=== PATIENT | male | born 1980 | race Caucasian/White ===

== ENCOUNTER 2020-11-20 15:34 | Outpatient (REF) | payer OTHER, SELFPAY ==
--- NOTE | ~2020-11-20 | US_ITS ---
EXAMINATION: US SCROTUM CLINICAL INFORMATION: Left-sided pain. COMPARISON: Previous scrotal ultrasound July 2018 TECHNIQUE: A sonogram of the scrotum was performed assessing suero-scale appearance and color Doppler flow. Spectral Doppler analysis of the arterial and venous flow were performed in the testes bilaterally. FINDINGS: RIGHT: Right testicle measures 4.4 x 2.4 x 2.9 cm, volume 16 mL. No focal testicular parenchymal lesions are visualized. Spectral Doppler analysis of the arterial and venous flow is normal in the right testis. Right epididymal head is normal in size. No right hydrocele or varicocele is seen. Right epididymal Doppler flow is normal. LEFT: Left testicle measures 4.1 x 2.2 x 2.5 cm, volume 12 mL. There is a solitary 2 mm echogenic density in the superior left testicle suggestive of a calcification. No other focal testicular parenchymal lesions are visualized. Spectral Doppler analysis of the arterial and venous flow is normal in the left testis. Left epididymal head is normal in size. There is a small left hydrocele. This appears slightly complex with septations. No left varicocele is seen. Left epididymal Doppler flow is normal. US/US scrotum IMPRESSION: Small slightly complex left hydrocele new from 2019 exam. Small solitary calcification in the left testicle..
== END 2020-11-20 15:35 | disposition home or self-care (01) ==
LOC: HO.HMGCX 15:34
PROVIDERS: PCP Nurse Practitioner Family; Visit Provider Nurse Practitioner Family
DX: N50.812 Left testicular pain (principal); R10.32 Left lower quadrant pain
CPT/HCPCS: 76870

== ENCOUNTER → 2020-12-17 15:09 | Outpatient (BNVA) | payer OTHER, SELFPAY | PROVIDERS: PCP Nurse Practitioner Family; Visit Provider Urology | DX: Z13.89 Encounter for screening for other disorder (principal) | CPT/HCPCS: 99202 ==

== ENCOUNTER 2021-02-05 09:05 | Outpatient (REF) | payer OTHER, SELFPAY ==
[2021-02-05 12:19] LABS: Alanine Aminotransferase 43 U/L (0-40); Albumin Level 4.4 g/dL (3.5-5.0); Alkaline Phosphatase 67 U/L (39-117); Anion Gap 16 (12-20); Aspartate Amino Transferase 28 U/L (5-37); Bilirubin Total 0.8 mg/dL (0.0-1.0); Blood Urea Nitrogen 16 mg/dL (9-16); Calcium 9.8 mg/dL (8.4-10.2); Carbon Dioxide 24 mmol/L (22-29); Chloride 103 mmol/L (96-108); Cholesterol 200 mg/dL; Estimated Glomerular Filt Rate > 60; Glucose Fasting 100 mg/dL (60-99); HDL Cholesterol 51 mg/dL; LDL Cholesterol Calculated 124 mg/dl; Potassium 4.6 mmol/L (3.3-5.1); Sodium 138 mmol/L (135-145); Total Protein 7.7 g/dL (6.5-8.0); Triglycerides 128 mg/dL
[2021-02-05 12:41] LABS: TSH reflex Free T4 1.98 uIU/mL (0.32-4.0)
== END 2021-02-05 09:06 | disposition home or self-care (01) ==
LOC: HO.HMGCLDS 09:05
PROVIDERS: PCP Nurse Practitioner Family; Visit Provider Nurse Practitioner Family
DX: E66.9 Obesity, unspecified (principal)
CPT/HCPCS: 36415; 80053; 80061; 84443

== ENCOUNTER 2021-03-14 15:01 | Outpatient (REF) | payer OTHER, SELFPAY ==
--- NOTE | ~2021-03-14 | XR_ITS ---
EXAMINATION: XR ABDOMEN COMPLETE CLINICAL INDICATION: Abdominal pain COMPARISON: None TECHNIQUE: 2 views of the abdomen. FINDINGS: The bowel gas pattern is normal with no evidence of ileus or obstruction. No unusual soft tissue calcifications are noted. The bones are unremarkable. XR/XR abdomen min 2V IMPRESSION: Unremarkable examination.
== END 2021-03-14 15:02 | disposition home or self-care (01) ==
LOC: HO.HMGCX 15:01
PROVIDERS: PCP Nurse Practitioner Family; Visit Provider Hospitalist
DX: R10.9 Unspecified abdominal pain (principal)
CPT/HCPCS: 74019

== ENCOUNTER 2021-03-21 08:48 | Outpatient (REF) | payer OTHER, SELFPAY ==
[2021-03-21 12:29] LABS: Alanine Aminotransferase 41 U/L (0-40); Albumin Level 4.3 g/dL (3.5-5.0); Alkaline Phosphatase 69 U/L (39-117); Anion Gap 12 (12-20); Aspartate Amino Transferase 24 U/L (5-37); Bilirubin Total 0.6 mg/dL (0.0-1.0); Blood Urea Nitrogen 16 mg/dL (9-16); Calcium 9.8 mg/dL (8.4-10.2); Carbon Dioxide 28 mmol/L (22-29); Chloride 104 mmol/L (96-108); Cholesterol 177 mg/dL; Estimated Glomerular Filt Rate > 60; Glucose Fasting 96 mg/dL (60-99); HDL Cholesterol 43 mg/dL; LDL Cholesterol Calculated 124 mg/dl; Potassium 5.1 mmol/L (3.3-5.1); Sodium 139 mmol/L (135-145); Total Protein 7.4 g/dL (6.5-8.0); Triglycerides 53 mg/dL
[2021-03-21 12:51] LABS: TSH reflex Free T4 2.73 uIU/mL (0.32-4.0)
[2021-03-27 21:32] LABS: Testosterone, Free 50.9 pg/mL (35.0-155.0); Testosterone, Total 318 ng/dL (250-1100)
== END 2021-03-21 08:49 | disposition home or self-care (01) ==
LOC: HO.HMGCLDS 08:48
PROVIDERS: PCP Nurse Practitioner Family; Visit Provider Nurse Practitioner Family
DX: R53.83 Other fatigue (principal)
CPT/HCPCS: 36415; 80053; 80061; 84402; 84403; 84443

== ENCOUNTER → 2021-05-06 10:06 | Outpatient (BNVA) | payer OTHER, SELFPAY | PROVIDERS: PCP Nurse Practitioner Family; Referring Provider Nurse Practitioner Family; Visit Provider Psychiatry & Neurology Neurology | DX: G47.69 Other sleep related movement disorders (principal); R53.83 Other fatigue; R06.83 Snoring; R06.81 Apnea, not elsewhere classified | CPT/HCPCS: 99212 ==

== ENCOUNTER 2021-06-12 09:24 | Outpatient (REF) | payer OTHER, SELFPAY ==
--- NOTE | ~2021-06-12 | CT_ITS ---
EXAMINATION: CT ABDOMEN AND PELVIS WITH CONTRAST CLINICAL INFORMATION: Deep inguinal pain, left side. COMPARISON: CT abdomen and pelvis with IV contrast 11/24/2018. TECHNIQUE: Multidetector volumetric images were obtained from the superior aspect of the liver through the pubic symphysis following administration 85 mL of Omnipaque 350 intravenous contrast. Sagittal and coronal reformatted images were obtained on the technologist's workstation. Oral contrast: No This CT examination was performed using dose optimization techniques as appropriate, variously including the following: *Automated exposure control *Adjustment of mA and/or kV according to patient size (this includes techniques or standardized protocols for targeted exams where dose is matched to indication/reason for exam; i.e. extremities or head) *Use of iterative reconstruction technique DLP: 588 mGy-cm FINDINGS: LUNG BASES: The visualized lung bases are unremarkable. LIVER, GALLBLADDER, AND BILIARY TREE: The liver is normal in size, shape, and attenuation. No focal hepatic lesion or biliary ductal dilatation is present. The gallbladder is unremarkable with no evidence of radiopaque gallstones, gallbladder wall thickening, or obvious pericholecystic inflammatory changes. PANCREAS: Unremarkable. SPLEEN: Unremarkable. ADRENAL GLANDS: Unremarkable. KIDNEYS AND URETERS: The kidneys are normal in size, shape, and attenuation. No hydronephrosis, hydroureter, or calculi seen. No perinephric stranding. BLADDER: Unremarkable. GASTROINTESTINAL TRACT: There is stool, oral contrast opacifying a normal caliber colon. The small bowel loops are normal caliber as well. Appendix is not visualized. The stomach is nondistended with a small hiatal hernia. ABDOMINAL WALL: No significant hernia is appreciated. LYMPH NODES: There are bilateral prominent iliac lymph nodes. The largest right iliac lymph node measures 1.9 x 1.2 cm. Previously it measured 1.4 x 1.9 cm, similar. The left inguinal lymph node is also enlarged but similar size. Small shotty retroperitoneal lymph nodes are seen less than 1 cm. VASCULAR: Unremarkable. PELVIC VISCERA: Unremarkable. OSSEOUS STRUCTURES: There is loss of height with endplate Schmorl's nodes T8-T9 through L1-L2 disc levels. No aggressive lytic or sclerotic process seen. CT/CT abdomen pelvis w con IMPRESSION: No acute intra-abdominal process seen. There is no inguinal hernia or mass. Small hiatal hernia is noted. Prominent bilateral iliac lymph nodes, stable.
[2021-06-12] MEDS: iohexoL 350 MG/ML 100 ML INFUS..BTL IV (10:11)
== END 2021-06-12 09:25 | disposition home or self-care (01) ==
LOC: HO.CT 09:24
PROVIDERS: Visit Provider Nurse Practitioner Family
DX: R10.32 Left lower quadrant pain (principal)
CPT/HCPCS: 74177; Q9967

== ENCOUNTER → 2021-08-05 13:48 | Outpatient (BNVA) | payer OTHER, SELFPAY | PROVIDERS: PCP Nurse Practitioner Family; Referring Provider Nurse Practitioner Family; Visit Provider Surgery | DX: N50.812 Left testicular pain (principal) | CPT/HCPCS: 99202 ==

== ENCOUNTER → 2021-08-12 20:58 | Outpatient (REF) | payer OTHER, SELFPAY | LOC: HO.SL 20:58 | PROVIDERS: PCP Nurse Practitioner Family; Visit Provider Psychiatry & Neurology Neurology | DX: G47.69 Other sleep related movement disorders (principal); R06.81 Apnea, not elsewhere classified; R06.83 Snoring; R53.83 Other fatigue | CPT/HCPCS: 95810 ==

== ENCOUNTER → 2021-08-21 11:20 | Outpatient (BNVA) | payer OTHER, SELFPAY | PROVIDERS: PCP Nurse Practitioner Family; Visit Provider Urology | DX: R10.32 Left lower quadrant pain (principal) | CPT/HCPCS: 99212 ==

== ENCOUNTER → 2021-09-23 14:03 | Outpatient (BNVA) | payer OTHER, SELFPAY | PROVIDERS: PCP Nurse Practitioner Family; Referring Provider Nurse Practitioner Family; Visit Provider Psychiatry & Neurology Neurology | DX: G47.33 Obstructive sleep apnea (adult) (pediatric) (principal) | CPT/HCPCS: 99212 ==

== ENCOUNTER 2021-09-30 09:08 | Outpatient (REF) | payer OTHER, SELFPAY ==
--- NOTE | ~2021-09-30 | MR_ITS ---
EXAMINATION: MR KNEE WITHOUT CONTRAST, LEFT CLINICAL INFORMATION: Left knee pain. Prior partial anterior cruciate ligament tear without surgery. COMPARISON: Left knee radiographs dated 05/18/2018. TECHNIQUE: MRI of the knee without contrast was performed using routine sequences on a high-field scanner. FINDINGS: MENISCI: Medial Meniscus: Intact. Lateral Meniscus: Minimal inner margin fraying of the meniscal body with a nondisplaced oblique inner margin tear of the posterior horn. LIGAMENTS: Cruciate: Prominent attenuation of the anterior cruciate ligament with near-complete absence, consistent with a chronic high-grade tear. Intact posterior cruciate ligament. Collateral: Intact. EXTENSOR MECHANISM: Intact. ARTICULAR CARTILAGE/BONE: Patellofemoral Compartment: Mild central trochlear articular cartilage signal heterogeneity. Tiny marginal osteophytes. Medial Compartment: Intact articular cartilage. Lateral Compartment: Full-thickness articular cartilage defect at the posterior weightbearing lateral femoral condyle measuring 1.3 x 0.5 cm (AP by ML). Along the posterior most aspect of the nonweightbearing lateral femoral condyle, there is articular cartilage thinning/fissuring with underlying subchondral cystic change. There are tiny marginal osteophytes. JOINT FLUID AND BURSAE: Trace joint effusion and trace Solomon's cyst. MR/MR knee LT wo con IMPRESSION: 1. Minimal inner margin fraying of the lateral meniscal body with a nondisplaced oblique inner margin tear of the posterior horn. 2. Near-complete absence of the anterior cruciate ligament, consistent with a remote high-grade tear. 3. Full-thickness articular cartilage defect at the posterior weightbearing lateral femoral condyle measuring 1.3 x 0.5 cm with posterior nonweightbearing articular cartilage loss and subchondral cystic change. Minimal patellofemoral arthrosis. 4. Trace joint effusion and trace Solomon's cyst.
== END 2021-09-30 09:09 | disposition home or self-care (01) ==
LOC: HO.MRI 09:08
PROVIDERS: PCP Nurse Practitioner Family; Visit Provider Nurse Practitioner Family
DX: M25.562 Pain in left knee (principal)
CPT/HCPCS: 73721

== ENCOUNTER 2021-10-29 10:27 | Outpatient (REF) | payer OTHER, SELFPAY ==
--- NOTE | ~2021-10-29 | XR_ITS ---
EXAMINATION: XR LUMBOSACRAL SPINE CLINICAL INFORMATION: Low back pain. COMPARISON: 11/20/2014. TECHNIQUE: Three views of the lumbosacral spine. FINDINGS: There are 6 nonrib-bearing lumbar vertebrae with partial sacralization of the L6 on the left, similar to prior study. Mild mid lumbar levoscoliosis is present. Multilevel degenerative spondylosis related changes are noted at L1-2 and L2-3 with mild anterior compression deformity of L1 and L2 vertebral bodies as well as T12, appear similar to prior study. The pre and paraspinal soft tissues are unremarkable. Posterior appendages are intact. No significant facet arthritic changes. XR/XR lumbar spine 2-3V IMPRESSION: No significant change since 11/20/2014.
== END 2021-10-29 10:28 | disposition home or self-care (01) ==
LOC: HO.HMGCX 10:27
PROVIDERS: Visit Provider Nurse Practitioner Family
DX: G89.29 Other chronic pain (principal); M54.50 Low back pain, unspecified; M43.9 Deforming dorsopathy, unspecified; R93.89 Abnormal findings on diagnostic imaging of other specified body structures
CPT/HCPCS: 72100

== ENCOUNTER 2021-11-13 09:00 | Outpatient (RCR) | payer OTHER, SELFPAY ==
--- NOTE | 2021-10-07 10:20 | MHC.PT.EP ---
[facility] [place] Office [place] Office [place] Office [address] Michelle Mccarty [address] [phone] F: [phone] F: [phone] F: [phone] F: [phone] Physical Therapy Plan of Care Date of Evaluation: Date of Surgery: Diagnosis: left lower quadrant pain, pelvic PT Assessment: The patient arrived reporting low back pain, pain in testicular region, and pain in his left inguinal region. Painful ROM and 25% reduced with trunk extension. Monica asessment showed a possible L1 posterolateral derangement that may or may not be contributing to testicular pain. He had no palpable mass or lump in the inguinal canal down to the rectus attachment. No pain with palpation of adductor tendon up to the insertion. He was educated on pelvic floor therapy and was informed that an internal rectal exam may be indicated at some point, but it was deferred today. The patient has normal bladder and bowel function, but reports recent trouble with ED. He will likely need help with finding proper contraction of pelvic floor muscles which will occur in subsequent visits. He is a good candidate for skilled pelvic floor therapy. At this point I have educated him on form during exercise, posture with sitting, standing, and laying down, and body mechanics for lifting, bed mobility. He will likely need more instruction as he begins this new self initiated exercise program. Frequency and Duration: The patient will be seen 1x/week x 6 weeks. Short Term Goals: 1. Review proper lifting mechanics, and body mechanics for daily ADL's 2. Pt to be able to learn proper sitting posture, sleeping posture, and standing posture. 3. education on reducing intraabdominal pressure Snf Goals: 1. pt to be able to report no longer having testicular pain. 2. Pt to be independent with final HEP 3. pt to be able to return to work and ADL's without inguinal pain. 4. Pt to begin a new HEP without limiting pain. Treatment Plan: Modalities to reduce pain, spasms and effusion. Manual therapy to restore motion and function. Therapeutic exercise to improve strength and flexibility. Neuromuscular re-education for posture and balance. Therapeutic activities to return to functional activities of daily living. Electronically signed by: Please sign and return to therapist. Thank you for your referral.
== END 2022-01-23 13:57 | disposition home or self-care (01) ==
LOC: HO.PT 09:00
PROVIDERS: PCP Nurse Practitioner Family; Visit Provider Urology
DX: R10.32 Left lower quadrant pain (principal)
CPT/HCPCS: 97014; 97110; 97112; 97140; 97530

== ENCOUNTER → 2021-11-19 13:08 | Outpatient (BNVA) | payer OTHER, SELFPAY | PROVIDERS: PCP Nurse Practitioner Family; Visit Provider Urology | DX: Z13.89 Encounter for screening for other disorder (principal) ==

== ENCOUNTER 2021-12-25 14:30 | Outpatient (REF) | payer OTHER, SELFPAY ==
--- NOTE | ~2021-12-25 | MR_ITS ---
EXAMINATION: MR LUMBAR SPINE WITHOUT CONTRAST CLINICAL INFORMATION: Low back pain. Bilateral lower extremity radiculopathy. COMPARISON: X-ray dated 10/29/2021. MRI dated 11/29/2014. TECHNIQUE: MRI of the lumbar spine was obtained using routine sequences without contrast. FINDINGS: VERTEBRAL BODIES AND PARASPINAL STRUCTURES: As seen on prior imaging, there is a transitional lumbosacral junction with partial lumbarization of the S1 vertebra and a developed S1-S2 disc space. A retrosubluxation is stable at the L5-S1 level. There are no compression fractures. There are mild degenerative changes of the sacroiliac joints. Significant disc space narrowing with chronic endplate Schmorl's nodes and ossific spurring are most notable again from the T12 through the L3 levels. Chronic fatty marrow endplate changes present at these levels. The remainder of the marrow signal is fairly homogeneous. The paraspinal soft tissues are unremarkable. CONUS MEDULLARIS AND CAUDA EQUINA: Normal, terminating at the level of L2. No lower cord signal abnormality is seen. The cauda equina nerve roots are normal. SPINAL LEVELS: L1-L2: Keeimxbx-xo-wdxnkg loss of disc height and diffuse disc bulge with chronic endplate changes. No central canal stenosis or foraminal narrowing. L2-L3: Retrosubluxation and diffuse disc bulge with chronic endplate changes and vcteuuym-fq-sbrurf loss of disc height. Mild facet arthropathy. No central canal stenosis. Mild right foraminal narrowing. L3-L4: Disc degeneration and slight retrosubluxation with mild facet arthropathy. No central canal stenosis or foraminal narrowing. L4-L5: Well-hydrated disc without central canal stenosis or foraminal encroachment. L5-S1: Retrosubluxation and posterior disc bulge with mild facet arthropathy. No central canal stenosis. Mild bilateral foraminal narrowing. S1-S2: No disc pathology evident. Lkgu-fv-mgxvomqe facet arthropathy without central canal stenosis or foraminal encroachment. MR/MR lumbar spine wo con IMPRESSION: Significant degenerative disc disease and chronic endplate changes again evident at the T12-L1, L1-L2, and L2-L3 levels with mild disc bulges. No central canal stenosis or focal disc protrusion. Transitional lumbosacral junction with partial lumbarization of the S1 vertebra. Stable posterior disc bulge and mild retrosubluxation at the L5-S1 level with mild foraminal narrowing.
== END 2021-12-25 14:31 | disposition home or self-care (01) ==
LOC: HO.MRI 14:30
PROVIDERS: Visit Provider Nurse Practitioner Family
DX: M54.50 Low back pain, unspecified (principal); G89.29 Other chronic pain; M43.9 Deforming dorsopathy, unspecified; R93.89 Abnormal findings on diagnostic imaging of other specified body structures
CPT/HCPCS: 72148

== ENCOUNTER 2022-03-18 11:50 | Outpatient (REF) | payer OTHER, SELFPAY ==
--- NOTE | ~2022-03-18 | XR_ITS ---
EXAMINATION: XR CERVICAL SPINE CLINICAL INFORMATION: Cervical disc disorder COMPARISON: None TECHNIQUE: 3 views of the cervical spine were obtained. FINDINGS: Bone alignment is normal. No fracture or dislocation is seen. There is degenerative spondylosis from C4-C5 to C7-T1. There is degenerative disc disease at C4-C5, C6-C7 C7-T1. Prevertebral soft tissues are normal. XR/XR cervical spine 2V IMPRESSION: Multilevel degenerative changes.
== END 2022-03-18 11:51 | disposition home or self-care (01) ==
LOC: HO.HMGCX 11:50
PROVIDERS: PCP Nurse Practitioner Family; Visit Provider Nurse Practitioner Family
DX: M50.90 Cervical disc disorder, unspecified, unspecified cervical region (principal)
CPT/HCPCS: 72040

== ENCOUNTER → 2022-04-24 09:41 | Outpatient (BNVA) | payer OTHER, SELFPAY | PROVIDERS: PCP Nurse Practitioner Family; Referring Provider Nurse Practitioner Family; Visit Provider Nurse Practitioner Family | DX: Z12.11 Encounter for screening for malignant neoplasm of colon (principal); K21.9 Gastro-esophageal reflux disease without esophagitis; K64.9 Unspecified hemorrhoids | CPT/HCPCS: 99202 ==

== ENCOUNTER 2022-05-11 11:13 | Outpatient (REF) | payer OTHER, SELFPAY ==
[2022-05-12 14:03] LABS: H Pylori Breath Test Negative (Negative)
== END 2022-05-11 11:14 | disposition home or self-care (01) ==
LOC: HO.LNP 11:13
PROVIDERS: Nurse Practitioner Family; PCP Nurse Practitioner Family; Referring Provider Nurse Practitioner Family; Visit Provider Nurse Practitioner Family
DX: R10.9 Unspecified abdominal pain (principal)
CPT/HCPCS: 83013; 99211

== ENCOUNTER 2022-08-27 06:23 | Day surgery (SDC) | payer OTHER, SELFPAY ==
[2022-08-21 11:29] VITALS: BMI 34.2
[2022-08-27 06:28] VITALS: BP 152/99; PULSE 77; RESP 18; TEMP 36.1; O2SAT 96
[2022-08-27] MEDS: Lactated Ringers 1,000 ML 50 ML IVCONT (06:59)
--- NOTE | 2022-08-27 07:19 | HO.ANESPROP2 ---
HPI - Anesthesia Eval Consult details Narrative: 42 yo male patient for EGD, Colonoscopy PMF Active Problems Active Problems: All Active Problems (Updated 06/10/22 @ 09:13 by MIGUELINA Gordon) Headache (Acute) Left knee pain (Acute) Deep inguinal pain, left (Acute) Testicular pain, left (Acute) Hydrocele (Acute) Sleep apnea (Acute) Abdominal pain (Acute) Family history of skin cancer (Acute) Fatigue (Acute) Loud snoring (Acute) Witnessed apneic spells (Acute) Sleep related movement disorder, unspecified (Acute) Chronic sinusitis (Acute) Cluster headaches (Acute) Abnormal x-ray (Acute) Compression deformity of vertebra (Acute) DDD (degenerative disc disease), lumbar (Acute) DDD (degenerative disc disease), thoracic (Acute) Physical exam (Acute) Cervical neck pain with evidence of disc disease (Acute) CPAP (continuous positive airway pressure) dependence (Acute) Screening for colon cancer (Acute) DDD (degenerative disc disease), cervical (Acute) Chronic low back pain (Acute) ACL injury tear (Acute) Deep left inguinal pain (Acute) Obstructive sleep apnea (Acute) Left testicular pain (Acute) Past Medical History Medical History ACL injury tear Chronic low back pain DDD (degenerative disc disease), cervical Deep left inguinal pain GERD (gastroesophageal reflux disease) Left testicular pain Lumbar foraminal stenosis Obstructive sleep apnea Family History Family History Mother No problems noted. Father No problems noted. Sister Skin cancer Maternal Uncle Mental health disorder Family history of problems with anesthesia: No Surgical History Surgical History History of repair of ACL History of Problems with Anesthesia: No Social History Social History Housing: House Are you a primary physician primary care sports medicine to a significant other at home: No Do you presently have visiting nurse or other home services: No Alcohol intake: current Alcohol intake frequency: a few times a week Patient Tobacco Use Status: Never used Tobacco e-Cigarette/Vaping Use: Never Used Second Hand Smoke Exposure: Yes Use of substances other than those prescribed or required for medical reasons: No Have you been hit, kicked, punched, or otherwise hurt by someone within the past year? If so, by whom?: No Are you DNR?: No Advance Directives: No Advance Directives Information Provided: Yes (brochure mailed) Advance Directives on File: No Recently lost weight without trying: No Eating poorly because of decreased appetite: No Nutrition Risks: No Nutritional Risk Poor oral hygiene: No service: Yes Current occupational status: employed Cognitive needs: No Hearing needs: No Vision needs: No Meds Allergies Allergy/AdvReac Type Severity Reaction Status Date / Time Sulfa (Sulfonamide Allergy Intermediate hives Verified 08/21/22 11:07 Antibiotics) Active Medications: Current Medications Lactated Ringer's (Lr) 1,000 mls @ 50 mls/hr IVCONT .Q20H BROOK[place]NN Last Admin: 08/27/22 06:59 Dose: 50 mls/hr Exam Exam Date and Time: August 27, 2022 0719 Height,Weight and Vital Signs: Height 5 ft 11 in Weight 111.13 kg Last Vital Signs Temp 96.9 F 08/27/22 06:28 Pulse 77 08/27/22 06:28 Resp 18 08/27/22 06:28 BP 152/99 H 08/27/22 06:28 Pulse Ox 96 08/27/22 06:28 O2 Del Method 08/27/22 06:28 Airway Mallampati Class: II TM Dist: >3cm Neck ROM: Full Heart: RRR Lungs: CTAB Assessment and Plan Assessment Anesthesia Assessment: Anesthesia Plan Discussed and Chart Reviewed Final Anesthetic Review Family History of Problems with Anesthesia: No History of Problems with Anesthesia: No NPO: Yes ASA Class: III Final Preanesthetic Review: No Changes in Pt Med Stat, Meds/Allgs Chart Reviewed, Consent Obtained/Reviewed and Anes Risks/Benef Reviewed Patient Risk: Intermediate Procedure Risk: Low Assessment/Block/Sedation in SS: Assess/Block/Sedation-SS Anesthetic Plan Anesthetic Plan: MAC: Disposition: Standard PACU
--- NOTE | 2022-08-27 07:33 | MHC.SHP ---
Pre-Procedural Eval Section A Date of Service: 08/27/22 Section B Chief Complaint: hemorrhoids,reflux disease,screening Details of Present Illness: Presenting for longstanding GERD and screening. Mentions occ scant rectal bleeding marlin if constipation. Here for EGD/colo. Relevant Family History (Specify if Yes): Yes Present Medications: see Short Stay Collaborative assessment Medical History: Significant History (Obesity, PIEDAD, DDD, fam hx of colon and skin cancer. ) Allergies: Allergies Allergy/AdvReac Type Severity Reaction Status Date / Time Sulfa (Sulfonamide Allergy Intermediate hives Verified 08/21/22 11:07 Antibiotics) Review of Systems Review of Systems Comment: 10 point ROS negative Exam Exam Comment: Gen appear: No acute distress, well nourished HEENT: no icterus Chest: No overt resp distress Abd: soft, nontender, nondistended Psych: Stable affect, answering questions appropriately Neuro: A/Ox3 noted to move all extremities spontaneously Ext: no peripheral edema Plan Diagnosis/Plan: Unchanged I have reviewed the history and physical and performed a pertinent physical examination on my patient. No changes have occurred unless specified. Time Spent With Patient Time: Total time managing care of this patient today ____ minutes.
--- NOTE | 2022-08-27 07:37 | P.OP_ITS ---
Operative Note Operative Note Date of Service: 08/27/22 Narrative: Procedure:?Esophagogastroduodenoscopy and Colonoscopy Indication:?GERD, screening Endoscopist:?Kenyatta Leslie MD Anesthesia Provider:?Violet Marquez CRNA Anesthesia type:?MAC Instrument:?Olympus GIF-H190 and PCF-H190L EGD Procedure:?? The procedure, indications, preparation and potential complications were reviewed with the patient, who indicated understanding and gave written informed consent to proceed. A physical exam was performed. The endoscope was introduced through the mouth, and advanced to the second part of duodenum. The mucosa was carefully examined on slow withdrawal of the endoscope. The patient tolerated the procedure well. There were no immediate complications.? ? EGD Findings:? * Esophagus:? A small focus of heterotopic gastric mucosa noted at 21 cm. The GE juntion was noted at 39 cm. [place]-pink colored columnar mucosa was noted to extend up to 37 cm. Cold forceps biospies were taken to rule out Gomez's esophagus. There was a small hiatal hernia with diaphragmatic pinch ar 41 cm. * Stomach:?Patchy erythema noted in the body. A few erosions were seen in the antrum. Retroflexion in the fundus confirmed the size and morphology of hiatal hernia. Random gastric biopsies were taken with a cold forceps to r/o H pylori. * Duodenum:? Normal mucosa was noted in the whole of the examined duodenum. Colonoscopy Procedure:? The patient was then turned for the colonoscopy. A digital rectal exam was performed which was normal. The colonoscope was then inserted through the anus and advanced through the colon to the cecum at 85 cm. The appendiceal orifice and ileocecal valve was identified.? Mucosa was carefully examined under high definition white light as the instrument was slowly withdrawn in a retrograde panoramic fashion. Retroflexion was performed in ascending colon and rectum. The procedure was not difficult. There were no immediate obvious complications. The quality of the prep was BBPS: 1+2+3 = inadequate in R colon. Withdrawal time 11 minutes. Limitations: Poor prep. Findings: Mucosa: Normal mucosa in whole colon to the extent visualised. Protruding lesions: * Medium internal hemorrhoids without stigmata of recent bleeding. Impression:? * Inlet patch * R/o Gomez's (biopsy) * Gastritis (biopsy) * Normal duodenum * Poor prep * Normal colon mucosa * Internal hemorrhoids Recommendations:?? * Follow path results. * If Gomez's esophagus confirmed, further management will depend on presence and extent of dysplasia. * If H pylori +, will need eradication therapy * Repeat colonoscopy within 1 year due to poor prep. Above has been reviewed with the patient.
[2022-08-27 08:14] VITALS: BP 100/63; PULSE 72; RESP 16; TEMP 36.1; O2SAT 99
[2022-08-27 08:29] VITALS: BP 100/63; PULSE 67; RESP 16; TEMP 36.2; O2SAT 98
== END 2022-08-27 09:07 | disposition home or self-care (01) ==
PROVIDERS: PCP Nurse Practitioner Family; Visit Provider Internal Medicine
PROC: (CPT 45378; principal; 2022-08-27 07:30)
DX: Z12.11 Encounter for screening for malignant neoplasm of colon (principal); K21.9 Gastro-esophageal reflux disease without esophagitis; K64.8 Other hemorrhoids; K44.9 Diaphragmatic hernia without obstruction or gangrene; Z80.0 Family history of malignant neoplasm of digestive organs
CPT/HCPCS: 45378; 43239; 88305; 88342

== ENCOUNTER → 2022-09-10 09:33 | Outpatient (BNVA) | payer OTHER, SELFPAY | PROVIDERS: PCP Nurse Practitioner Family; Referring Provider Nurse Practitioner Family; Visit Provider Nurse Practitioner Family | DX: K21.00 Gastro-esophageal reflux disease with esophagitis, without bleeding (principal); K58.2 Mixed irritable bowel syndrome; Z98.890 Other specified postprocedural states | CPT/HCPCS: 99212 ==

== ENCOUNTER → 2022-11-05 12:16 | Outpatient (BNVA) | payer OTHER, SELFPAY | PROVIDERS: PCP Nurse Practitioner Family; Visit Provider Psychiatry & Neurology Neurology | DX: G43.709 Chronic migraine without aura, not intractable, without status migrainosus (principal); R41.89 Other symptoms and signs involving cognitive functions and awareness; G47.30 Sleep apnea, unspecified | CPT/HCPCS: 99202 ==

== ENCOUNTER 2023-03-23 08:25 | Outpatient (REF) | payer OTHER, SELFPAY ==
--- NOTE | ~2023-03-23 | MR_ITS ---
EXAMINATION: MR BRAIN WITHOUT CONTRAST CLINICAL INFORMATION: Memory issues. Headaches. COMPARISON: None. TECHNIQUE: Multiplanar, multisequence imaging of the brain was performed without contrast. FINDINGS: No diffusion abnormalities are identified to suggest an acute infarct. The ventricles are normal in size. No mass effect or midline shift is seen. No brain parenchymal signal abnormality is noted. No extra-axial fluid collections are seen. The brainstem and cerebellum are normal. The gradient refocused acquisition is normal. The craniovertebral junction, marrow signal, and midline structures are normal. The major intracranial flow voids at the level of the [place] are preserved. The dural venous sinus flow voids are maintained. The mastoid air cells are well aerated. There is mild mucosal thickening throughout the paranasal sinuses with a significant leftward nasal septal deviation. MR/MR head/brain wo con IMPRESSION: No acute process. Normal MRI of the brain. Scattered areas of mild mucosal thickening in the paranasal sinuses with a significant leftward nasal septal deviation.
== END 2023-03-23 08:26 | disposition home or self-care (01) ==
LOC: HO.MRI 08:25
PROVIDERS: PCP Nurse Practitioner Family; Visit Provider Psychiatry & Neurology Neurology
DX: R41.89 Other symptoms and signs involving cognitive functions and awareness (principal)
CPT/HCPCS: 70551

== ENCOUNTER 2023-05-06 09:33 | Outpatient (AMB) | payer OTHER, SELFPAY ==
--- NOTE | 2023-05-06 09:35 | A.OFFVIS_ITS ---
Intake Vital Signs 05/06/23 09:39 Weight 242 lb 2 oz BP 120/80 Blood Pressure Location Rt brachial Position Sitting Pulse 82 Pulse Source Pulse Oximeter Pulse Oximetry (%) 97 Oxygen Delivery Method Room Air Intake Visit Reasons: 2 mon f/u for Cluster SALAZAR/Amnesia - LVM Intake Note: Headaches follow up. Patient states has stopped medication that was given for the headaches he states they made him depressed like. 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 Pt reports he still has daily headache, it is pounding, achy,throbbing and tension headache. He tried amitriptyline 25 mg qHS, but it did not help to reduce headache but made him groggy and lethargic the next day. He uses meloxicam daily for joint pain. Pt has PIEDAD and on CPAP but he is not compliant. He tried CPAP couple of months, but could not sleep with it, and made him more tired. Pt reports he has appointment with ENT for chronic sinusitis. He gained more than 30 lb over the last couple of years. Pt also start to see mental therapist for anxiety. [facility] Medical History Anxiety Chronic migraine without aura Cognitive change Facial trauma Irritable bowel syndrome with constipation and diarrhea DDD (degenerative disc disease), cervical Lumbar foraminal stenosis Deep left inguinal pain Obstructive sleep apnea Left testicular pain ACL injury tear Chronic low back pain GERD (gastroesophageal reflux disease) Surgical History History of esophagogastroduodenoscopy (EGD) Hx of colonoscopy History of repair of ACL Family History Mother No problems noted. Father No problems noted. Sister Skin cancer Maternal Uncle Mental health disorder Social History Housing: House Are you a primary critical care unit nurse to a significant other at home: No Do you presently have visiting nurse or other home services: No Alcohol intake: current Alcohol intake frequency: a few times a week Patient Tobacco Use Status: Never used Tobacco e-Cigarette/Vaping Use: Never Used Second Hand Smoke Exposure: No service: Yes Current occupational status: employed Cognitive needs: No Hearing needs: No Vision needs: No Review of Systems Const All systems reviewed & are unremarkable except as noted in HPI and below Physical Exam Vital Signs: Last Vital Signs Pulse 82 05/06/23 09:39 BP 120/80 05/06/23 09:39 Pulse Ox 97 05/06/23 09:39 Oxygen Delivery Method Room Air 05/06/23 09:39 Const General: cooperative and healthy appearing Nutritional Appearance: obese Orientation/consciousness: patient oriented x3 Limitations: no limitations Eyes Pupils: Equal, round and reactive pupils present Neck Neck: Yes no meningeal signs Neuro General: patient oriented x3, tone normal, moves all extremities, no meningeal signs and No no focal motor deficits Cranial nerves: Yes Facial sensation intact/muscles of mastication intact, Yes Equal, round and reactive pupils present, Yes Normal accommodation reflex present, Yes Nystagmus not present, Yes Normal facial strength present and Yes Midline tongue present Cognition (Neuro): normal cognition Gait exam (Neuro): Normal gait present Motor exam (neuro): 5/5 motor strength present throughout and Normal motor muscle tone present throughout Deep tendon reflexes (DTR's): Right triceps reflex intensity grade: 2+, Left triceps reflex intensity grade: 2+, Rt Biceps (C5, C6): 2+, Left biceps reflex intensity grade: 2+, Right brachioradialis reflex intensity grade: 2+, Left brachioradialis reflex intensity grade: 2+, Right patellar reflex intensity grade: 2+ and Left patellar reflex intensity grade: 2+ Coordination: [id number] test normal Assessment & Plan Assessment & Plan (1) Chronic migraine without aura: Code(s): G43.709 - Chronic migraine without aura, not intractable, without status migrainosus (2) Sleep apnea: Code(s): G47.30 - Sleep apnea, unspecified (3) Cognitive change: Code(s): R41.89 - Other symptoms and signs involving cognitive functions and awareness Plan Advised patient to have ENT evaluation for sleep apnea. Will consider somnoguard and inspire. Wt reduction advised. Advised patient to try topiramate 25 mg qHS for headache prevention. Encouraged patient to do gentle daily exercise, 30 min walking daily. Medications: New topiramate 25 mg PO BEDTIME 30 days 30 tabs 3RF Coding Level of Care Code Est Pt Level 4 (10441) Diagnoses Chronic migraine without aura G43.709 Sleep apnea G47.30 Cognitive change R41.89
[2023-05-06 09:39] VITALS: BP 120/80; PULSE 82; O2SAT 97
== END 2023-05-06 10:06 | disposition home or self-care (01) ==
PROVIDERS: Visit Provider Nurse Practitioner Family
DX: G43.709 Chronic migraine without aura, not intractable, without status migrainosus (principal); G47.30 Sleep apnea, unspecified; R41.89 Other symptoms and signs involving cognitive functions and awareness
CPT/HCPCS: 99214

== ENCOUNTER → 2023-05-06 09:33 | Outpatient (BNVA) | payer OTHER, SELFPAY | PROVIDERS: Visit Provider Nurse Practitioner Family | DX: G43.709 Chronic migraine without aura, not intractable, without status migrainosus (principal); G47.30 Sleep apnea, unspecified; R41.89 Other symptoms and signs involving cognitive functions and awareness | CPT/HCPCS: 99212 ==

== ENCOUNTER 2023-05-20 12:02 | Outpatient (REF) | payer OTHER, SELFPAY ==
--- NOTE | ~2023-05-20 | XR_ITS ---
EXAMINATION: XR KNEE AP STANDING, BILATERAL CLINICAL INFORMATION: Bilateral knee pain. COMPARISON: MR left knee 09/30/2021. 06/20/2018 radiographs bilateral knees. TECHNIQUE: AP standing view of bilateral knees. Bilateral lateral views were also obtained. FINDINGS: LEFT KNEE: Mild medial joint space narrowing. Small joint effusion. Expected appearance status post left ACL repair with Endobutton along the distal aspect of the femur. RIGHT KNEE: Mild medial joint space narrowing. No significant joint effusion. Redemonstration of corticated ossicles anterior to the tibial tuberosity, similar to 06/20/2018. XR/XR knee standing BI IMPRESSION: 1. Expected appearance status post left ACL repair with Endobutton along the distal aspect of the femur. 2. Mild medial joint space narrowing. Redemonstration of corticated ossicles anterior to the tibial tuberosity, similar to 06/20/2018.
== END 2023-05-20 12:03 | disposition home or self-care (01) ==
LOC: HO.HMGCX 12:02
PROVIDERS: PCP Nurse Practitioner Family; Visit Provider Nurse Practitioner Family
DX: M25.561 Pain in right knee (principal); M25.562 Pain in left knee; G89.29 Other chronic pain
CPT/HCPCS: 73565

== ENCOUNTER 2023-08-20 09:21 | Outpatient (AMB) | payer OTHER, SELFPAY ==
--- NOTE | 2023-08-20 09:28 | MHC.OFFVIS ---
Intake Vital Signs 08/20/23 09:34 Height 5 ft 10 in Weight 238 lb 2 oz BMI 34.2 BP 110/80 Pulse 65 Pulse Source Pulse Oximeter Pulse Oximetry (%) 97 Oxygen Delivery Method Room Air Intake Visit Reasons: 2 mon f/u for Cluster SALAZAR/Amnesia - CONF Intake Note: Patient presents still having migraines almost everyday and medication not working. Has questions on CTE Allergies Sulfa (Sulfonamide Antibiotics) Allergy (Intermediate, Verified 08/20/23 09:33) hives HPI HPI Comments History of Present Illness Details 43 y/o male patient presents for follow up of PIEDAD and migraine. Pt reports he still can have daily mild headache, it is pounding, achy headache. However, migraine frequency and intensity has improved. He has occasional migraine. Pt thinks that topiramate 25 mg helps to reduce the migraine frequency and intensity. He tried amitriptyline 25 mg qHS, but it did not help to reduce headache but made him groggy and lethargic the next day. He uses meloxicam daily for joint pain. Pt has PIEDAD and on CPAP, he sleeps a little better now, but still struggle to keep the mask for the night. Pt reports he has appointment with ENT for chronic sinusitis. Pt also start to see mental therapist for anxiety. The CPAP compliance and therapy response (07/21/23-08/19/23) reviewed. He is on APAP [id number]. The usage days 80% and the average usage hours 7 hrs 45 min. The max pressure was 13 and the residual AHI was 2.1/hr. [facility] Medical History Anxiety Chronic migraine without aura Cognitive change Facial trauma Irritable bowel syndrome with constipation and diarrhea DDD (degenerative disc disease), cervical Lumbar foraminal stenosis Deep left inguinal pain Obstructive sleep apnea Left testicular pain ACL injury tear Chronic low back pain GERD (gastroesophageal reflux disease) Surgical History History of esophagogastroduodenoscopy (EGD) Hx of colonoscopy History of repair of ACL Family History Mother No problems noted. Father No problems noted. Sister Skin cancer Maternal Uncle Mental health disorder Social History Housing: House Are you a primary intensive care ambulance paramedic to a significant other at home: No Do you presently have visiting nurse or other home services: No Alcohol intake: current Alcohol intake frequency: a few times a week Patient Tobacco Use Status: Never used Tobacco e-Cigarette/Vaping Use: Never Used Second Hand Smoke Exposure: No service: Yes Current occupational status: employed Cognitive needs: No Hearing needs: No Vision needs: No Review of Systems Const All systems reviewed & are unremarkable except as noted in HPI and below Physical Exam Vital Signs: Last Vital Signs Pulse 65 08/20/23 09:34 BP 110/80 08/20/23 09:34 Pulse Ox 97 08/20/23 09:34 Oxygen Delivery Method Room Air 08/20/23 09:34 BMI result Body Mass Index 34.2 Const General: cooperative and healthy appearing Nutritional Appearance: obese Orientation/consciousness: patient oriented x3 Limitations: no limitations Eyes Pupils: Equal, round and reactive pupils present Neck Neck: Yes no meningeal signs Neuro General: patient oriented x3, tone normal, moves all extremities, no meningeal signs and No no focal motor deficits Cranial nerves: Yes Facial sensation intact/muscles of mastication intact, Yes Equal, round and reactive pupils present, Yes Normal accommodation reflex present, Yes Nystagmus not present, Yes Normal facial strength present and Yes Midline tongue present Cognition (Neuro): normal cognition Gait exam (Neuro): Normal gait present Motor exam (neuro): 5/5 motor strength present throughout and Normal motor muscle tone present throughout Deep tendon reflexes (DTR's): Right triceps reflex intensity grade: 2+, Left triceps reflex intensity grade: 2+, Rt Biceps (C5, C6): 2+, Left biceps reflex intensity grade: 2+, Right brachioradialis reflex intensity grade: 2+, Left brachioradialis reflex intensity grade: 2+, Right patellar reflex intensity grade: 2+ and Left patellar reflex intensity grade: 2+ Coordination: [id number] test normal Assessment & Plan Assessment & Plan (1) Chronic migraine without aura: Code(s): G43.709 - Chronic migraine without aura, not intractable, without status migrainosus (2) Sleep apnea: Code(s): G47.30 - Sleep apnea, unspecified (3) Cognitive change: Code(s): R41.89 - Other symptoms and signs involving cognitive functions and awareness Plan Advised patient to have ENT evaluation for sleep apnea and sinus. Wt reduction advised. Advised patient to try topiramate 50 mg qHS for headache prevention. Encouraged patient to do gentle daily exercise, 30 min walking daily. Medications: New topiramate 50 mg PO BEDTIME 90 days 90 tabs 1RF Coding Level of Care Code Est Pt Level 4 (59064) Diagnoses Chronic migraine without aura G43.709 Sleep apnea G47.30 Cognitive change R41.89
[2023-08-20 09:34] VITALS: BP 110/80; PULSE 65; O2SAT 97; BMI 34.2
== END 2023-08-20 10:04 | disposition home or self-care (01) ==
PROVIDERS: PCP Nurse Practitioner Family; Visit Provider Nurse Practitioner Family
DX: G43.709 Chronic migraine without aura, not intractable, without status migrainosus (principal); G47.30 Sleep apnea, unspecified; R41.89 Other symptoms and signs involving cognitive functions and awareness
CPT/HCPCS: 99214

== ENCOUNTER → 2023-08-20 09:21 | Outpatient (BNVA) | payer OTHER, SELFPAY | PROVIDERS: PCP Nurse Practitioner Family; Visit Provider Nurse Practitioner Family | DX: G43.709 Chronic migraine without aura, not intractable, without status migrainosus (principal); G47.30 Sleep apnea, unspecified; R41.89 Other symptoms and signs involving cognitive functions and awareness | CPT/HCPCS: 99212 ==

== ENCOUNTER 2023-10-13 13:32 | Outpatient (AMB) | payer OTHER, SELFPAY ==
--- NOTE | 2023-10-13 13:38 | A.OFFPC_ITS ---
Vital Signs 10/13/23 13:43 Height 5 ft 10 in Weight 243 lb BMI 34.9 BP 112/78 Blood Pressure Location Lt brachial Position Sitting Pulse 78 Pulse Source Pulse Oximeter Pulse Oximetry (%) 97 Intake Visit Reasons: Annual PE/CX due to [facility] being out in [facility] Intake Note: pt is here for annual exam Physical Metallurgist Required: No Allergies Sulfa (Sulfonamide Antibiotics) Allergy (Intermediate, Verified 10/13/23 16:48) hives Medication List - Last Reconciled 10/13/23 by EZIO Cadena cyclobenzaprine 10 mg PO DAILY PRN 30 days diclofenac sodium 3% 1 appl topical BID diclofenac sodium 75 mg PO BID PRN 90 days doxepin 3 mg PO BEDTIME PRN escitalopram oxalate 10 mg PO DAILY famotidine (Pepcid) 20 mg PO BEDTIME fluticasone propionate 50 mcg/actuation (Flonase Allergy Relief) 1 spray intranasal Q12H meloxicam 15 mg PO DAILY 90 days methocarbamol 500 mg PO BEDTIME 30 days omeprazole 40 mg PO DAILY sildenafil 75 mg (1.5 x 50 mg) PO DAILY PRN 30 days sumatriptan succinate take 1 tab at onset of headache; if no relief, may repeat 1 tab after at least 2 hrs; max = 2 tabs/24 hrs PO 30 days topiramate 50 mg PO BEDTIME 90 days Tobacco use date assessed: 10/13/23 Dental Screening Dental Screen Date: 10/13/23 Did you have a dental visit in the last 12 months?: Yes Did you have a dental problem in the last 6 months where you did not have access to dental care?: No Was dental information given to patient?: Patient has dentist HPI Annual PE/CX due to [facility] being out in [facility] HPI Details Pt is here for a PE. Will order labs. Due for colon screen. Pt sees neurology. [facility] Medical History Anxiety Chronic migraine without aura Cognitive change Facial trauma Irritable bowel syndrome with constipation and diarrhea DDD (degenerative disc disease), cervical Lumbar foraminal stenosis Deep left inguinal pain Obstructive sleep apnea Left testicular pain ACL injury tear Chronic low back pain GERD (gastroesophageal reflux disease) Surgical History History of esophagogastroduodenoscopy (EGD) Hx of colonoscopy History of repair of ACL Family History Mother No problems noted. Father No problems noted. Sister Skin cancer Maternal Uncle Mental health disorder Social History Housing: House Are you a primary director critical care to a significant other at home: No Do you presently have visiting nurse or other home services: No Alcohol intake: current Alcohol intake frequency: a few times a week Patient Tobacco Use Status: Never used Tobacco e-Cigarette/Vaping Use: Never Used Second Hand Smoke Exposure: No service: Yes Current occupational status: employed Cognitive needs: No Hearing needs: No Vision needs: No Questionnaire PHQ-9 Over the last 2 weeks, how often have you been bothered by any of the following problems? 1. Little interest or pleasure in doing things: not at all 2. Feeling down, depressed, or hopeless: not at all 3. Trouble falling or staying asleep, or sleeping too much: not at all 4. Feeling tired or having little energy: several days 5. Poor appetite or overeating: not at all 6. Feeling bad about yourself - or that you are a failure or have let yourself or your family down: not at all 7. Trouble concentrating on things, such as reading the newspaper or watching television: several days 8. Moving or speaking so slowly that other people could have noticed. Or the opposite - being so fidgety or restless that you have been moving around a lot more than usual: not at all 9. Thoughts that you would be better off or of hurting yourself in some way: not at all Total score: 2 Depression Screening Interpretation: Negative Depression Screening Done: Yes 43262 - PHQ-9 Billing: Yes Source: Developed by Drs. Jack Arreguin, Mala Nascimento, Yang Quintanilla and colleagues, with an educational gm from [employer]. Thrive Questionnaire Date Thrive assessed: 10/13/23 I am a: Patient What is your living situation today?: I have a steady place to live Within the past 12 months, did the food you bought not last and you didn't have the money to get more?: Never true Within the past 12 months, did you worry whether your food would run out before you got money to buy more?: Never true Do you have trouble paying for medicines?: No Do you have trouble getting transportation to medical appointments?: No Do you have trouble paying your heating and electricity bill?: No Do you have trouble taking care of your child, family member or friend?: No Do you have trouble with day-to-day activities such as bathing, preparing meals, shopping, managing finances, etc.?: No Are you currently unemployed and looking for a job?: No Are you interested in more education?: No Please select the resources that you would like help with: None Currently or been in a relationship where the following occur: no concerns reported THRIVE Score: 0 AUDIT C Alcohol Use Questionnaire (AUDIT-C) 1. How often do you have a drink containing alcohol?: 2-4 times a month 2. How many drinks containing alcohol do you have on a typical day when you are drinking?: 3 or 4 3. How often do you have six or more drinks on one occasion?: Never Total Score: 3 Score Reviewed/Action Taken: Yes ANA-7 AMB Questionnaire ANA-7 Date ANA - 7 assessed: 10/13/23 Feeling nervous, anxious, or on edge: 1 = Several days Not being able to stop or control worryin = Not at all Worrying too much about different things: 1 = Several days Trouble relaxin = Several days Being so restless that it is hard to sit still: 0 = Not at all Becoming easily annoyed or irritable: 1 = Several days Feeling afraid as if something awful might happen: 0 = Not at all Total ANA-7 score (0-4 normal; 5-9 mild; 10-14 moderate; 15-21 severe): 4 Source: Developed by Drs. Jack Arreguin, Mala Nascimento, Yang Quintanilla and colleagues, with an educational gm from [employer]. ANA-7 Assessment Billing ANA-7 Assessment Tool: ANA-7 Assessment 69591 Review of Systems Const Denies chills and Denies fever(s) Eyes Denies blurry vision ENT Denies vertigo, Denies dizziness and Denies sore throat Card Denies chest pain at rest, Denies chest pain with activity, Denies diaphoresis, Denies dyspnea and Denies dyspnea on exertion Resp Denies cough, Denies dyspnea, Denies dyspnea on exertion and Denies wheezing GI Denies abdominal pain, Denies melena, Denies hematochezia, Denies constipation, Denies diarrhea and Denies loose stools Denies hematuria Musc Denies numbness and Denies tingling Skin/Breast Denies lesions Neuro Denies vertigo, Denies dizziness, Denies numbness and Denies tingling Psych Denies anxiety, Denies depression, Denies homicidal ideation, Denies suicidal ideation and Denies other (substance abuse) Aller/Immun Denies wheezing Physical exam (Primary Care) Vital Signs: Last Vital Signs Pulse 78 10/13/23 13:43 BP 112/78 10/13/23 13:43 Pulse Ox 97 10/13/23 13:43 BMI result Body Mass Index 34.9 Tobacco/Smoking Status: Tobacco use Status Tobacco use date assessed 10/13/23 10/13/23 13:49 Patient Tobacco Use Status Never used Tobacco 10/13/23 13:39 e-Cigarette/Vaping Use Never Used 10/13/23 13:39 PHQ-9: PHQ-9 Score PHQ-9: Total score 2 10/13/23 14:09 Depression Screening Interpretation: Negative Thrive Assessment: Date of Thrive Assessment Date Thrive assessed 10/13/23 10/13/23 13:49 Currently or been in a relationship where the following occur: no concerns reported Const General: cooperative Nutritional Appearance: well nourished Orientation/consciousness: patient oriented x3 HENMT Head: Yes normal to inspection, Yes normocephalic and Yes atraumatic Ears: TM's normal bilaterally Eyes General: appearance normal, both eyes and all related structures Alignment and Position: alignment normal and position normal Neck Neck: Yes normal visual inspection and Yes no lymphadenopathy Thyroid: Thyroid normal Resp Effort & Inspection: normal respiratory effort Auscultation: clear to auscultation bilaterally Cardio Rate: regular rate Rhythm: regular rhythm Heart sounds: S1 normal heart sound present, S2 normal heart sound present and no murmurs GI Palpation (GI): Soft to palpation and nontender Auscultation: normal bowel sounds Male General Exam: Yes normal external exam Penis: normal penis Scrotum: scrotum normal, testes descended bilaterally and no inguinal hernias Testes: no testicular mass Skin Rashes: no rashes Neuro General: patient oriented x3, moves all extremities, no focal motor deficits and deep tendon reflexes 2+ bilaterally Romberg Test: Negative Psych Appearance: grossly normal Mental Status: mental status grossly normal Speech and movement: Normal speech and movement present Affect: normal affect Attitude: cooperative Thought process: Normal thought process present Thought content: Normal thought content present Insight: Good insight present (Psych) Judgement: Good judgement present (Psych) Assessment and Plan Assessment & Plan (1) Physical exam: Code(s): Z00.00 - Encounter for general adult medical examination without abnormal findings Plan: Labs ordered Plan The patient agreed to the use of a medical case worker for this encounter. Scribed for ZEIO Lockett by Avis Sy medical case worker, on 10/13/2023 at 13:55 EST. Orders: Orders Complete Blood Count Auto Diff Today Z00.00 - Encounter for general adult medical examination without abnormal findings Lipid Panel Today Z00.00 - Encounter for general adult medical examination without abnormal findings Comprehensive [place]. Panel Fast Today Z00.00 - Encounter for general adult medical examination without abnormal findings TSH reflex Free T4 Today Z00.00 - Encounter for general adult medical examination without abnormal findings UA CC w/rflx Micro + Cult Today Z00.00 - Encounter for general adult medical examination without abnormal findings Coding Level of Care Code Est Pt Prev Care 40-64y(50544) Diagnoses Physical exam Z00.00 Additional Codes ANA-7 Assessment Billing - ANA-7 Assessment Tool: ANA-7 Assessment [id number] ([id number])
[2023-10-13 13:43] VITALS: BP 112/78; PULSE 78; O2SAT 97; BMI 34.9
== END 2023-10-13 14:25 | disposition home or self-care (01) ==
PROVIDERS: PCP Nurse Practitioner Family; Visit Provider Nurse Practitioner Family
DX: Z00.00 Encounter for general adult medical examination without abnormal findings (principal)
CPT/HCPCS: 99396

== ENCOUNTER 2024-01-26 08:51 | Outpatient (REF) | payer OTHER, SELFPAY ==
[2024-01-26 10:26] LABS: MANUAL DIFF FLAG NO
[2024-01-26 10:36] LABS: Basophils Absolute Auto 0.1 X10*3/uL (0.0-0.2); Eosinophils Absolute Auto 0.3 X10*3/uL (0.0-0.4); Eosinophils Percent Auto 4.9 % (0-4); Hematocrit 46.6 % (42.0-52.0); Hemoglobin 15.5 g/dl (14.0-18.0); Imm Gran Abs Auto 0.02 X10*3/uL (0.00-0.03); Imm Gran Pct Auto 0.3 % (0.0-0.4); Lymphocytes Absolute Auto 1.2 X10*3/uL (1.2-4.9); Lymphocytes Percent Auto 21.5 % (20-40); Mean Corpuscular HGB Conc 33.3 g/dl (31.0-36.0); Mean Corpuscular Hemoglobin 30.6 pg (27.0-33.0); Mean Corpuscular Volume 91.9 fL (80.0-98.0); Monocytes Absolute Auto 0.6 X10*3/uL (0.1-1.2); Monocytes Percent Auto 11.1 % (2-11); Neutrophils Absolute Auto 3.5 x10*3/uL (2.0-8.3); Neutrophils Percent Auto 61.2 % (45-73); Platelet Count 294 X10*3/uL (160-400); Red Blood Count 5.07 X10*6/uL (4.60-5.80); Red Cell Distribution Width 13.5 % (11.0-16.0); White Blood Count 5.8 X10*3/uL (4.8-10.8)
[2024-01-26 11:03] LABS: Alanine Aminotransferase 39 U/L (0-40); Albumin Level 4.2 g/dL (3.5-5.0); Alkaline Phosphatase 58 U/L (39-117); Anion Gap 11 (12-20); Aspartate Amino Transferase 29 U/L (5-37); Bilirubin Total 0.5 mg/dL (0.0-1.0); Blood Urea Nitrogen 17 mg/dL (9-16); Calcium 9.2 mg/dL (8.4-10.2); Carbon Dioxide 26 mmol/L (22-29); Chloride 105 mmol/L (96-108); Cholesterol 185 mg/dL (<200); Estimated Glomerular Filt Rate > 60; Glucose Fasting 109 mg/dL (60-99); HDL Cholesterol 42 mg/dL (>40); LDL Cholesterol Calculated 128 mg/dL (<100); Potassium 4.1 mmol/L (3.3-5.1); Sodium 138 mmol/L (135-145); Total Protein 7.2 g/dL (6.5-8.0); Triglycerides 76 mg/dL (<150)
[2024-01-26 11:22] LABS: TSH reflex Free T4 2.53 uIU/mL (0.32-4.0)
[2024-01-26 16:03] LABS: Appearance Urine Clear; Color Urine Yellow; Glucose Urine UA Negative (Negative); Leukocyte Esterase Urine Negative (Negative); Nitrite Urine Negative (Negative); Specific Gravity - Urine 1.015 (1.005-1.025); Urine Blood Negative (Negative); Urine Ketones Negative (Negative); Urine Protein Negative (Neg-Trace)
== END 2024-01-26 08:52 | disposition home or self-care (01) ==
LOC: HO.HMGCLDS 08:51
PROVIDERS: PCP Nurse Practitioner Family; Visit Provider Nurse Practitioner Family
DX: Z00.00 Encounter for general adult medical examination without abnormal findings (principal); Z13.6 Encounter for screening for cardiovascular disorders
CPT/HCPCS: 36415; 80053; 80061; 81003; 84443; 85025

== ENCOUNTER 2024-02-09 08:54 | Outpatient (REF) | payer OTHER, SELFPAY ==
[2024-02-09 10:19] LABS: MANUAL DIFF FLAG NO
[2024-02-09 10:29] LABS: Basophils Absolute Auto 0.1 X10*3/uL (0.0-0.2); Basophils Percent Auto 1.1 % (0-2); Eosinophils Absolute Auto 0.3 X10*3/uL (0.0-0.4); Eosinophils Percent Auto 5.5 % (0-4); Hematocrit 46.5 % (42.0-52.0); Hemoglobin 15.6 g/dl (14.0-18.0); Imm Gran Abs Auto 0.01 X10*3/uL (0.00-0.03); Imm Gran Pct Auto 0.2 % (0.0-0.4); Lymphocytes Absolute Auto 1.2 X10*3/uL (1.2-4.9); Lymphocytes Percent Auto 22.7 % (20-40); Mean Corpuscular HGB Conc 33.5 g/dl (31.0-36.0); Mean Corpuscular Volume 92.3 fL (80.0-98.0); Monocytes Absolute Auto 0.6 X10*3/uL (0.1-1.2); Monocytes Percent Auto 10.4 % (2-11); Neutrophils Absolute Auto 3.3 x10*3/uL (2.0-8.3); Neutrophils Percent Auto 60.1 % (45-73); Platelet Count 303 X10*3/uL (160-400); Red Blood Count 5.04 X10*6/uL (4.60-5.80); Red Cell Distribution Width 13.2 % (11.0-16.0); White Blood Count 5.5 X10*3/uL (4.8-10.8)
[2024-02-09 11:05] LABS: Alanine Aminotransferase 34 U/L (0-40); Albumin Level 4.3 g/dL (3.5-5.0); Alkaline Phosphatase 55 U/L (39-117); Anion Gap 12 (12-20); Aspartate Amino Transferase 26 U/L (5-37); Bilirubin Total 0.5 mg/dL (0.0-1.0); Blood Urea Nitrogen 12 mg/dL (9-16); Calcium 9.8 mg/dL (8.4-10.2); Carbon Dioxide 27 mmol/L (22-29); Chloride 105 mmol/L (96-108); Cholesterol 170 mg/dL (<200); Estimated Glomerular Filt Rate > 60; Ferritin 34 ng/mL (20-250); Glucose Random 114 mg/dL (60-115); HDL Cholesterol 37 mg/dL (>40); Iron 56 mcg/dL (45-160); LDL Cholesterol Calculated 115 mg/dL (<100); Percent Iron Saturation 18 % (15-50); Potassium 4.5 mmol/L (3.3-5.1); Sodium 139 mmol/L (135-145); Total Iron Binding Capacity 310 mcg/dL (228-428); Total Protein 7.3 g/dL (6.5-8.0); Triglycerides 93 mg/dL (<150); Unsaturated Iron Binding 254 ug/dL
[2024-02-09 14:09] LABS: Prostate Specific Antigen Scr 0.44 ng/mL (<0.05-4.0)
[2024-02-19 05:23] LABS: Estradiol Free 2.52 pg/mL; Estradiol, Ultrasensitive 101 pg/mL (< OR = 29)
[2024-03-12 04:24] LABS: Dihydrotestosterone 84 ng/dL (12-65)
== END 2024-02-09 08:55 | disposition home or self-care (01) ==
LOC: HO.HMGCLDS 08:54
PROVIDERS: PCP Nurse Practitioner Family; Visit Provider Physician Assistant
DX: E11.9 Type 2 diabetes mellitus without complications (principal); E29.1 Testicular hypofunction; D64.9 Anemia, unspecified; Z12.5 Encounter for screening for malignant neoplasm of prostate; E78.5 Hyperlipidemia, unspecified; K76.0 Fatty (change of) liver, not elsewhere classified; R53.83 Other fatigue; R97.20 Elevated prostate specific antigen [PSA]; E78.9 Disorder of lipoprotein metabolism, unspecified
CPT/HCPCS: 36415; 80053; 80061; 82642; 82670; 82681; 82728; 83540; 84153; 84402; 84403; 85025

== ENCOUNTER 2024-04-04 09:38 | Outpatient (AMB) | payer OTHER, SELFPAY ==
[2024-04-04 09:44] VITALS: BP 122/78; PULSE 76; O2SAT 98; BMI 34.9
--- NOTE | 2024-04-04 09:44 | MHC.PC.OV ---
Vital Signs 04/04/24 09:44 Height 5 ft 10 in Weight 243 lb 6 oz BMI 34.9 BP 122/78 Blood Pressure Location Rt brachial Position Sitting Pulse 76 Pulse Source Pulse Oximeter Pulse Oximetry (%) 98 Oxygen Delivery Method Room Air Intake Visit Reasons: 6 month follow up Intake Note: pt is here for 6 month follow up Allergies Sulfa (Sulfonamide Antibiotics) Allergy (Intermediate, Verified 04/04/24 09:46) hives Tobacco use date assessed: 10/13/23 Dental Screening Dental Screen Date: 10/13/23 HPI 6 month follow up HPI Details left lateral tongue with circular white lesion, just anterior to this lesion with another white lesion. Pt is going through insurance, seeing an oral surgeon who is planning to do a biopsy next week. Pt reports tenderness, but when he hits it. Denies fever, chills, and dizziness. [facility] Medical History Anxiety Chronic migraine without aura Cognitive change Facial trauma Irritable bowel syndrome with constipation and diarrhea DDD (degenerative disc disease), cervical Lumbar foraminal stenosis Deep left inguinal pain Obstructive sleep apnea Left testicular pain ACL injury tear Chronic low back pain GERD (gastroesophageal reflux disease) Surgical History History of esophagogastroduodenoscopy (EGD) Hx of colonoscopy History of repair of ACL Family History Mother No problems noted. Father No problems noted. Sister Skin cancer Maternal Uncle Mental health disorder Social History Housing: House Are you a primary childcare teacher to a significant other at home: No Do you presently have visiting nurse or other home services: No Alcohol intake: current Alcohol intake frequency: a few times a week Patient Tobacco Use Status: Never used Tobacco e-Cigarette/Vaping Use: Never Used Second Hand Smoke Exposure: No service: Yes Current occupational status: employed Cognitive needs: No Hearing needs: No Vision needs: No Questionnaire Thrive Questionnaire Date Thrive assessed: 10/13/23 I am a: Patient What is your living situation today?: I choose not to answer this question Within the past 12 months, did the food you bought not last and you didn't have the money to get more?: I choose not to answer this question Within the past 12 months, did you worry whether your food would run out before you got money to buy more?: I choose not to answer this question Do you have trouble paying for medicines?: I choose not to answer this question Do you have trouble getting transportation to medical appointments?: I choose not to answer this question Do you have trouble paying your heating and electricity bill?: I choose not to answer this question Do you have trouble taking care of your child, family member or friend?: I choose not to answer this question Do you have trouble with day-to-day activities such as bathing, preparing meals, shopping, managing finances, etc.?: I choose not to answer this question Are you currently unemployed and looking for a job?: I choose not to answer this question Are you interested in more education?: I choose not to answer this question Please select the resources that you would like help with: None Currently or been in a relationship where the following occur: I choose not to answer THRIVE Score: 0 AUDIT C Alcohol Use Questionnaire (AUDIT-C) 1. How often do you have a drink containing alcohol?: Never Total Score: 0 ANA-7 AMB Questionnaire ANA-7 Date ANA - 7 assessed: 10/13/23 Feeling nervous, anxious, or on edge: 0 = Not at all Not being able to stop or control worryin = Not at all Worrying too much about different things: 0 = Not at all Trouble relaxin = Not at all Being so restless that it is hard to sit still: 0 = Not at all Becoming easily annoyed or irritable: 0 = Not at all Feeling afraid as if something awful might happen: 0 = Not at all Total ANA-7 score (0-4 normal; 5-9 mild; 10-14 moderate; 15-21 severe): 0 Source: Developed by Drs. Jack Arreguin, Mala Nascimento, Yang Quintanilla and colleagues, with an educational gm from [employer] Review of Systems Const Reports as per HPI Physical exam (Primary Care) Vital Signs: Last Vital Signs Pulse 76 04/04/24 09:44 BP 122/78 04/04/24 09:44 Pulse Ox 98 04/04/24 09:44 Oxygen Delivery Method Room Air 04/04/24 09:44 BMI result Body Mass Index 34.9 Tobacco/Smoking Status: Tobacco use Status Tobacco use date assessed 10/13/23 04/04/24 09:45 Patient Tobacco Use Status Never used Tobacco 04/04/24 09:45 e-Cigarette/Vaping Use Never Used 04/04/24 09:45 Thrive Assessment: Date of Thrive Assessment Date Thrive assessed 10/13/23 04/04/24 09:45 Currently or been in a relationship where the following occur: I choose not to answer Const General: cooperative Nutritional Appearance: obese Orientation/consciousness: patient oriented x3 HENMT Other: left lateral mid tongue with circular white lesion, just anterior to this lesion with smaller white lesion Resp Effort & Inspection: normal respiratory effort Auscultation: clear to auscultation bilaterally Cardio Rate: regular rate Rhythm: regular rhythm Heart sounds: S1 normal heart sound present and S2 normal heart sound present Neuro General: patient oriented x3 Psych Appearance: grossly normal Mental Status: mental status grossly normal Speech and movement: Normal speech and movement present Affect: normal affect Attitude: cooperative Thought process: Normal thought process present Thought content: Normal thought content present Insight: Good insight present (Psych) Judgement: Good judgement present (Psych) Assessment and Plan Assessment & Plan (1) Oral lesion: Code(s): K13.70 - Unspecified lesions of oral mucosa Plan: Following up with oral surgeon (2) Nadya: Code(s): L81.2 - Nadya Plan: Referred to derm (3) Tongue lesion: Code(s): K14.8 - Other diseases of tongue Plan The patient agreed to the use of a medical assistant cardiology for this encounter. Scribed for EZIO Lockett by Avis Sy medical assistant cardiology, on 04/04/2024 at 09:55 EST. Orders: Referrals Dermatology Referral L81.2 - Nadya Coding Level of Care Code Est Pt Level 3 (22163) Diagnoses Oral lesion K13.70 Freblanche L81.2 Tongue lesion K14.8
== END 2024-04-04 10:53 | disposition home or self-care (01) ==
PROVIDERS: PCP Nurse Practitioner Family; Visit Provider Nurse Practitioner Family
DX: K13.70 Unspecified lesions of oral mucosa (principal); L81.2 Freckles; K14.8 Other diseases of tongue
CPT/HCPCS: 99213